=== PATIENT | female | born 1935 | race Caucasian/White ===

== ENCOUNTER 2021-08-25 05:37 | Inpatient (IN) | payer MEDICARE ==
[2021-08-18 11:43] LABS: BASOPHILS % (AUTO) 0.8 % (0-1); EOSINOPHILS # (AUTO) 0.1 X10'3 (0-0.9); EOSINOPHILS % (AUTO) 2.1 % (0-6); LYMPHOCYTES # (AUTO) 1.8 X10'3 (1.1-4.8); LYMPHOCYTES % (AUTO) 29.9 % (21-51); MEAN CORPUSCULAR HEMOGLOBIN 31.4 PG (27.0-31.0); MEAN CORPUSCULAR VOLUME 95.2 FL (78-98); MEAN PLATELET VOLUME 8.1 FL (7.4-10.4); MONOCYTES # (AUTO) 0.5 X10'3 (0-0.9); MONOCYTES % (AUTO) 8.8 % (2-12); NEUTROPHILS # (AUTO) 3.6 X10'3 (1.8-7.7); NEUTROPHILS % (AUTO) 58.4 % (42-75); PRE OP HEMATOCRIT 43.7 % (35.0-45.0); PRE OP HEMOGLOBIN 14.4 g/dL (12.0-16.0); PRE OP PLATELET COUNT 173 X10'3 (140-440); RED BLOOD COUNT 4.59 X10'6 (4.20-5.60); RED CELL DISTRIBUTION WIDTH 14.2 % (11.5-14.5)
[2021-08-18 12:51] LABS: ALBUMIN 3.5 G/DL (3.4-5.0); ALBUMIN/GLOBULIN RATIO 1.1 (1.1-1.5); BLOOD UREA NITROGEN 15 MG/DL (7-18); BUN/CREATININE RATIO 22.4 (6.6-38.0); CHLORIDE 105 MMOL/L (99-107); CREATININE 0.67 MG/DL (0.40-0.90); PRE OP ALT 17 U/L (30-65); PRE OP ANION GAP 12 (8-16); PRE OP AST 30 U/L (10-37); PRE OP BILIRUB, TOTAL 0.2 MG/DL (0.0-1.0); PRE OP GLUCOSE 86 MG/DL (70-104); PRE OP SODIUM 143 MMOL/L (135-145); TOTAL CARBON DIOXIDE 26.5 MMOL/L (24-32); TOTAL PROTEIN 6.8 G/DL (6.4-8.2); eGFR 84 ML/MIN
[2021-08-18 12:57] LABS: PRE OP POTASSIUM 4.4 MMOL/L (3.4-5.1)
[~2021-08-25] VITALS: Ht 167.6 cm; Wt 81.6 kg
[2021-08-25] VITALS (21 sets, daily range): BP systolic 98–131; BP diastolic 58–78
[~2021-08-25 05:37] MED LIST: GABA-530 PO; LEVO125T PO; cefazolin/dext.iso 2gm/50ml IV ONE; famotidine 20mg tablet PO ONE; ringers solution, lacted 1,000 ML IV SCH; vancomycin 1,500 MG in NS 300ml IV soln IV ONE
[2021-08-25] MEDS ORDERED: epiNEPHrine 1 mg/ml inj ONE ×2 (07:07→09:52)
[2021-08-25] MEDS ORDERED: ketorolac trometh. 30mg/ml inj. ONE (07:07)
[2021-08-25] MEDS ORDERED: ROPIVAcaine 0.5% (5mg/ml) 30ml vial ONE ×2 (07:08→09:44)
[2021-08-25] MEDS ORDERED: vancomycin 1,000mg inj ONE (07:08)
[2021-08-25] MEDS ORDERED: morphine 10mg/ml inj. ONE (07:08)
[2021-08-25] MEDS ORDERED: tetracaine 1% (10mg/ml) pres. free inj. ONE (07:39)
[2021-08-25] MEDS ORDERED: MIDAZolam 1mg/ml 10ml vial ONE (07:41)
[2021-08-25] MEDS ORDERED: FENTANYL CITRATE/PF 50 MCG/1 ML VIAL ONE (07:41)
[2021-08-25] MEDS ORDERED: ePHEDrine 50MG/ML INJ. ONE (08:18)
[2021-08-25] MEDS ORDERED: propofol inj 20 ML IV ONE (08:22)
[2021-08-25] MEDS ORDERED: morphine 4 MG/ML inj SYRINge IV PRN (09:00)
[2021-08-25] MEDS ORDERED: ondansetron/PF 4mg/2ml inj IV PRN ×2 (09:00→10:45)
[2021-08-25] MEDS ORDERED: ringers solution, lacted 1,000 ML IV SCH (09:00)
[2021-08-25] MEDS ORDERED: ROPIVAcaine 0.2% (10 MG/5 ML) BOLUS INJECTION ADDCANAL PRN (09:00)
[2021-08-25] MEDS ORDERED: proCHLORperazine 10 MG/2 ml inj IV PRN (09:00)
[2021-08-25] MEDS ORDERED: morphine 2 MG/ML inj. syringe IV PRN (09:00)
[2021-08-25] MEDS ORDERED: meperidine/PF 25mg/ml syringe IV PRN ×3 (09:00)
[2021-08-25] MEDS ORDERED: BUPIVAcaine 0.5% inj/PF 30 ML ONE (09:52)
--- NOTE | 2021-08-25 10:36 | NUR ---
Received from OR via BED , accompanied by Anesthesiologist dR. DAVIS and report given by Anesthesiolgist. RA @ 100% , VSS, 18 G LEFT WRIST, KNEE WRAP WITH POWDER PACK ON RIGHT , F/C. Addendum: 08/25/21 at 1134 by Carole Scott RN Amended: Links added.
[2021-08-25] MEDS ORDERED: TRANEXAMIC ACID IV ONE (10:45)
[2021-08-25] MEDS ORDERED: bisacodyl 10mg suppository rectal RC PRN (10:45)
[2021-08-25] MEDS ORDERED: magnesium hydroxide 30ml (MOM) UD suspension PO PRN (10:45)
[2021-08-25] MEDS ORDERED: HYDROmorphone inj. 0.5 MG/0.5 ML DISP.SYRIN IV PRN (10:45)
[2021-08-25] MEDS ORDERED: oxyCODONE IR 5mg (immed. release) tablet PO PRN (10:45)
[2021-08-25] MEDS ORDERED: NORMAL SALINE IV ONE (10:45)
[2021-08-25] MEDS ORDERED: HYDROmorphone 1 mg/ml syringe IV PRN (10:45)
[2021-08-25] MEDS ORDERED: acetaminophen 325mg tablet PO PRN (10:45)
[2021-08-25] MEDS ORDERED: diphenhydrAMINE 25mg capsule PO PRN ×2 (10:45)
[2021-08-25] MEDS ORDERED: tranexamic acid inj. 1,000 MG in 0.7% saline 100 ML PMX IV ONE (11:10)
[2021-08-25] MEDS: ROPIVAcaine 0.2%/PF PUMP/bolus 545 ML ADDCANAL SCH (12:03)
--- NOTE | 2021-08-25 12:16 | NUR ---
PATIENT MET DISCHARGE CRITERIA VSS, IV INTACT, DISTAL PULSES PRESENT, ON Q PUMP ADMIN, PATIENT STATES NO PAIN AT THIS TIME. CALLED REPORT TO PA BLAND ON SURGICAL. ROOM READY. Addendum: 08/25/21 at 1313 by Carole Scott RN Amended: Links added.
[2021-08-25] MEDS: gabapentin 300mg capsule PO SCH ×2 (12:54→20:54)
[2021-08-25] MEDS: oxyCODONE IR 5mg (immed. release) tablet PO PRN (12:54)
[2021-08-25] MEDS: acetaminophen 325mg tablet PO SCH ×2 (14:00→20:59)
[2021-08-25] MEDS: potassium cl 20mEq in 1/2 NS 1,000 ML IV SCH ×2 (16:58→18:45)
[2021-08-25] MEDS: ceFAZolin/D5W- 1GM premix 50 ML IV SCH (16:58)
--- NOTE | 2021-08-25 18:33 | NUR ---
Patient in room [facility]. I have received report from PA BLAND and had the opportunity to ask questions and assume patient care.
[2021-08-25] MEDS ORDERED: vancomycin/NS 1 GM ADD-VANTAGE 250 ML IV SCH (20:00)
[2021-08-25] MEDS: sennosides 8.6mg tablet PO SCH (20:54)
[2021-08-26] MEDS: ceFAZolin/D5W- 1GM premix 50 ML IV SCH (00:11)
[2021-08-26 00:29] VITALS: BP 141/75
[2021-08-26] MEDS: acetaminophen 325mg tablet PO SCH ×4 (02:36→19:44)
[2021-08-26] MEDS: potassium cl 20mEq in 1/2 NS 1,000 ML IV SCH ×2 (02:38→10:45)
[2021-08-26 04:16] VITALS: BP 116/66
[2021-08-26 06:14] LABS: BASOPHILS % (AUTO) 0.6 % (0-1); EOSINOPHILS # (AUTO) 0.1 X10'3 (0-0.9); HEMATOCRIT 33.8 % (35.0-45.0); HEMOGLOBIN 11.2 g/dl (12.0-16.0); LYMPHOCYTES # (AUTO) 0.8 X10'3 (1.1-4.8); LYMPHOCYTES % (AUTO) 12.1 % (21-51); MEAN CORPUSCULAR HEMOGLOBIN 31.5 PG (27.0-31.0); MEAN CORPUSCULAR HGB CONC 33.3 g/dL (33.0-36.5); MEAN CORPUSCULAR VOLUME 94.8 FL (78-98); MONOCYTES # (AUTO) 0.4 X10'3 (0-0.9); MONOCYTES % (AUTO) 6.8 % (2-12); NEUTROPHILS # (AUTO) 5.1 X10'3 (1.8-7.7); NEUTROPHILS % (AUTO) 78.5 % (42-75); PLATELET COUNT 130 X10'3 (140-440); RED BLOOD COUNT 3.56 X10'6 (4.20-5.60); RED CELL DISTRIBUTION WIDTH 13.9 % (11.5-14.5); WHITE BLOOD COUNT 6.5 X10'3 (4.5-11.0)
--- NOTE | 2021-08-26 06:14 | NUR ---
Problems reprioritized. Patient report given, questions answered & plan of care reviewed with PA BLAND.
[2021-08-26] MEDS: oxyCODONE IR 5mg (immed. release) tablet PO PRN (06:29)
[2021-08-26 07:00] VITALS: BP 110/51
[2021-08-26] MEDS: enoxaparin 40mg/0.4ml syringe SQ SCH (07:27)
[2021-08-26] MEDS: gabapentin 300mg capsule PO SCH (07:28)
[2021-08-26 07:30] LABS: ANION GAP 6 (8-16); CHLORIDE 107 MMOL/L (99-107); SODIUM 140 MMOL/L (135-145); TOTAL CARBON DIOXIDE 26.8 MMOL/L (24-32)
[2021-08-26] MEDS: levoTHYROXINE 125mcg tablet PO SCH (10:23)
--- NOTE | 2021-08-26 11:16 | NUR ---
Noted pt s/p right TKA. Attempted visit with pt at bedside however pt sleeping. Written protein education with RD contact information placed at patient's bedside. Will remain available. Addendum: 08/26/21 at [address] Amended: Links added.
[2021-08-26 12:00] VITALS: BP 96/61
[2021-08-26] MEDS: gabapentin 100mg capsule PO SCH (12:40)
[2021-08-26] MEDS ORDERED: normal saline 1000ml 1,000 ML IV ONE (12:40)
[2021-08-26] MEDS ORDERED: HYDROcodone/acetaminophen 10/325mg tab PO PRN (12:40)
[2021-08-26] MEDS ORDERED: HYDROcodone/acetaminophen 5mg/325mg tablet PO PRN (12:40)
[2021-08-26] MEDS ORDERED: metoclopramide 5 mg/ml inj IV ONE (16:32)
[2021-08-26] MEDS: celeCOXIB 100mg capsule PO SCH (19:45)
[2021-08-26 20:00] VITALS: BP 108/60
[2021-08-26] MEDS: metoclopramide 5 mg/ml inj IV SCH (20:00)
[2021-08-26] MEDS ORDERED: gabapentin 100mg capsule PO SCH (21:00)
[2021-08-26] MEDS: sennosides 8.6mg tablet PO SCH (21:15)
[2021-08-27] VITALS: BP 106/58
[2021-08-27] MEDS: acetaminophen 325mg tablet PO SCH ×2 (02:08→07:44)
[2021-08-27] MEDS: metoclopramide 5 mg/ml inj IV SCH ×2 (02:09→07:44)
[2021-08-27] MEDS: oxyCODONE IR 5mg (immed. release) tablet PO PRN (06:34)
[2021-08-27 06:35] LABS: BASOPHILS % (AUTO) 0.2 % (0-1); EOSINOPHILS # (AUTO) 0.2 X10'3 (0-0.9); EOSINOPHILS % (AUTO) 2.1 % (0-6); HEMATOCRIT 30.8 % (35.0-45.0); HEMOGLOBIN 10.2 g/dl (12.0-16.0); LYMPHOCYTES # (AUTO) 1.2 X10'3 (1.1-4.8); LYMPHOCYTES % (AUTO) 15.7 % (21-51); MEAN CORPUSCULAR HEMOGLOBIN 31.4 PG (27.0-31.0); MEAN CORPUSCULAR HGB CONC 33.3 g/dL (33.0-36.5); MEAN CORPUSCULAR VOLUME 94.3 FL (78-98); MEAN PLATELET VOLUME 7.9 FL (7.4-10.4); MONOCYTES # (AUTO) 0.7 X10'3 (0-0.9); MONOCYTES % (AUTO) 9.7 % (2-12); NEUTROPHILS # (AUTO) 5.5 X10'3 (1.8-7.7); NEUTROPHILS % (AUTO) 72.3 % (42-75); PLATELET COUNT 114 X10'3 (140-440); RED BLOOD COUNT 3.26 X10'6 (4.20-5.60); RED CELL DISTRIBUTION WIDTH 14.2 % (11.5-14.5); WHITE BLOOD COUNT 7.6 X10'3 (4.5-11.0)
--- NOTE | 2021-08-27 06:37 | NUR ---
Patient in room [facility]. I have received report from EDWINA Ceron and had the opportunity to ask questions and assume patient care.
--- NOTE | 2021-08-27 06:40 | NUR ---
Problems reprioritized. Patient report given, questions answered & plan of care reviewed with Yamile BLAND.
[2021-08-27] MEDS: gabapentin 100mg capsule PO SCH ×2 (07:43→12:30)
[2021-08-27] MEDS: levoTHYROXINE 125mcg tablet PO SCH (07:44)
[2021-08-27] MEDS: celeCOXIB 100mg capsule PO SCH (07:44)
[2021-08-27] MEDS: enoxaparin 40mg/0.4ml syringe SQ SCH (07:45)
[2021-08-27 08:00] VITALS: BP 113/69
[2021-08-27] MEDS: ROPIVAcaine 0.2%/PF PUMP/bolus 545 ML ADDCANAL SCH (10:21)
[2021-08-27] MEDS ORDERED: acetaminophen 325mg tablet PO PRN (10:45)
[2021-08-27 12:00] VITALS: BP 110/64
--- NOTE | 2021-08-27 12:00 | NUR ---
per PT patient starting Bp was 114/65 and after ambulating patient was 94/65 and did c/o of dizziness and lightheadedness. When returned to bed patient was 102/60. Patient requested to ambulate again. Patient BP was lying 110/64, sitting 123/57 and standing 108/67. Patient denies any dizziness or lightheadedness during ambulation and after. BP was 128/75 after ambulation. Will continue to monitor.
[2021-08-27] MEDS ORDERED: bisacodyl 5mg tablet.DR PO SCH (12:40)
[2021-08-27] MEDS ORDERED: ASPI81TA52 PO (12:46)
--- NOTE | 2021-08-27 16:27 | NUR ---
Patient alert and oriented in no apparent acute distress. Denies pain or discomfort at this time. Has ONQ @8ml. Knee wrap to right leg on with cool powder pack to right knee. Discussed with patient discharge instructions and new prescription. Patient verbalizes understanding of teaching. No questions from patient.
--- NOTE | 2021-08-27 16:37 | NUR ---
Patient dc'd with all personal belongings in wheelchair accompanied x1 staff.
--- NOTE | 2021-08-27 16:44 | NUR ---
x2 cool powder pack given to patient.
== END 2021-08-27 16:36 | disposition home or self-care (01) | DRG 470 ==
LOC: PAS IN 05:37 → SUR 3N 12:47
PROVIDERS: ADMIT Orthopaedic Surgery; ATTEND Orthopaedic Surgery
PROC: 3E0T3BZ Introduction of Anesthetic Agent into Peripheral Nerves and Plexi, Percutaneous Approach (ICD-10-PCS; 2021-08-25)
PROC: 0SRC0J9 Replacement of Right Knee Joint with Synthetic Substitute, Cemented, Open Approach (ICD-10-PCS; principal; 2021-08-25 07:36)
DX: M17.11 Unilateral primary osteoarthritis, right knee (principal); D62 Acute posthemorrhagic anemia; M25.761 Osteophyte, right knee; M21.061 Valgus deformity, not elsewhere classified, right knee; M65.861 Other synovitis and tenosynovitis, right lower leg; I95.1 Orthostatic hypotension; R11.2 Nausea with vomiting, unspecified
CPT/HCPCS: 36415; 73560; 80051; 80053; 82948; 84443; 85025; 87081; 93005; 97110; 97116; 97162; 97530; A4215; A7000; C1713; C1758; C1776; C9250; G0378; J0171; J0690; J1170; J1650; J1885; J2250; J2274; J2704; J2765; J2795; J3010; J3370; J3480; J3490; J7030; J7040; J7120; S0020; U0003; U0005

== ENCOUNTER 2021-08-29 10:36 | Emergency (ER) | payer MEDICARE ==
[~2021-08-29] VITALS: Ht 167.6 cm; Wt 90.0 kg
[~2021-08-29 10:36] MED LIST changes: +ASPI81TA52 PO; -cefazolin/dext.iso 2gm/50ml IV ONE; -famotidine 20mg tablet PO ONE; -ringers solution, lacted 1,000 ML IV SCH; -vancomycin 1,500 MG in NS 300ml IV soln IV ONE
[2021-08-29 11:00] VITALS: BP 125/60
[2021-08-29] MEDS ORDERED: CEPH-585 PO (11:33)
== END 2021-08-29 12:21 | disposition home or self-care (01) ==
LOC: ER 10:37
DX: S80.11XA Contusion of right lower leg, initial encounter (principal); M19.90 Unspecified osteoarthritis, unspecified site; Z85.3 Personal history of malignant neoplasm of breast; Z90.710 Acquired absence of both cervix and uterus; Z88.2 Allergy status to sulfonamides; Z79.2 Long term (current) use of antibiotics; Z79.899 Other long term (current) drug therapy; Z98.890 Other specified postprocedural states; X58.XXXA Exposure to other specified factors, initial encounter; Y93.89 Activity, other specified; Y92.89 Other specified places as the place of occurrence of the external cause; Y99.8 Other external cause status
CPT/HCPCS: 99283

== ENCOUNTER 2021-10-18 14:01 | Outpatient (CLI) | payer MEDICARE ==
[~2021-10-18 14:01] MED LIST changes: -ASPI81TA52 PO; +CEPH-585 PO
== END 2021-10-18 23:59 | disposition home or self-care (01) ==
LOC: VAS 14:01
PROVIDERS: ATTEND Orthopaedic Surgery
DX: M79.604 Pain in right leg (principal); M71.21 Synovial cyst of popliteal space [Baker], right knee
CPT/HCPCS: 93971

== ENCOUNTER 2022-12-22 07:51 | Emergency (ER) | payer MEDICARE ==
[~2022-12-22] VITALS: Ht 167.6 cm; Wt 82.4 kg
[~2022-12-22 07:51] MED LIST changes: -CEPH-585 PO
[2022-12-22 09:34] LABS: CLARITY,URINE CLEAR (Clear); COLOR,URINE STRAW (Yellow); GLUCOSE, URINE NEGATIVE (Neg); KETONES,URINE NEGATIVE (Neg); LEUKOCYTE ESTERASE ,URINE TRACE (Neg); NITRITES, URINE NEGATIVE (Neg); OCCULT BLOOD,URINE NEGATIVE (Neg); PROTEIN,URINE NEGATIVE (Neg); UROBILINOGEN,URINE 0.2 E.U/dL (0.2-1.0)
[2022-12-22 09:49] LABS: UA COLLECTION TYPE CLN CATCH MIDSTREAM
[2022-12-22 09:51] LABS: SQUAMOUS EPITHELIAL CELL,UR MODERATE /LPF (FEW)
[2022-12-22 09:53] LABS: BACTERIA,URINE FEW /HPF (Neg); RBC,URINE 0-2 /HPF (0-2); TRANSITIONAL EPI CELLS,URINE FEW /HPF; WBC,URINE 0-4 /HPF (0-4)
[2022-12-22 09:53] LABS: BASOPHILS % (AUTO) 0.7 % (0-1); EOSINOPHILS # (AUTO) 0.1 X10'3 (0-0.9); EOSINOPHILS % (AUTO) 2.8 % (0-6); HEMATOCRIT 41.6 % (35.0-45.0); HEMOGLOBIN 13.9 g/dl (12.0-16.0); LYMPHOCYTES # (AUTO) 1.4 X10'3 (1.1-4.8); LYMPHOCYTES % (AUTO) 26.8 % (21-51); MEAN CORPUSCULAR HEMOGLOBIN 32.1 PG (27.0-31.0); MEAN CORPUSCULAR HGB CONC 33.5 g/dL (33.0-36.5); MEAN CORPUSCULAR VOLUME 95.7 FL (78-98); MEAN PLATELET VOLUME 8.4 FL (7.4-10.4); MONOCYTES # (AUTO) 0.5 X10'3 (0-0.9); MONOCYTES % (AUTO) 9.9 % (2-12); NEUTROPHILS # (AUTO) 3.1 X10'3 (1.8-7.7); NEUTROPHILS % (AUTO) 59.8 % (42-75); PLATELET COUNT 161 X10'3 (140-440); RED BLOOD COUNT 4.34 X10'6 (4.20-5.60); WHITE BLOOD COUNT 5.1 X10'3 (4.5-11.0)
[2022-12-22 10:18] LABS: ALANINE AMINOTRANSFERASE 15 U/L (12-78); ALBUMIN 3.4 G/DL (3.4-5.0); ALKALINE PHOSPHATASE 72 IU/L (46-116); ANION GAP 7 (8-16); ASPARTATE AMINO TRANSFERASE 15 U/L (10-37); BILIRUBIN,TOTAL 0.5 MG/DL (0.1-1.0); BLOOD UREA NITROGEN 12 MG/DL (7-18); BUN/CREATININE RATIO 15.4 (10.0-20.0); CALCIUM 8.3 MG/DL (8.5-10.1); CHLORIDE 106 MMOL/L (99-107); CREATININE 0.78 MG/DL (0.40-0.90); GLUCOSE 92 MG/DL (70-104); LIPASE 97 U/L (73-393); POTASSIUM 3.9 MMOL/L (3.5-5.1); SODIUM 139 MMOL/L (135-145); TOTAL CARBON DIOXIDE 26.2 MMOL/L (24-32); TOTAL PROTEIN 6.9 G/DL (6.4-8.2); eGFR 70 ML/MIN
[2022-12-22 11:16] VITALS: BP 131/93
== END 2022-12-22 11:28 | disposition home or self-care (01) ==
LOC: ER 07:52
DX: K59.00 Constipation, unspecified (principal); R19.4 Change in bowel habit; Z88.2 Allergy status to sulfonamides; Z79.899 Other long term (current) drug therapy
CPT/HCPCS: 36415; 74176; 80053; 81001; 83690; 85025; 87088; 99284